=== PATIENT | male | born 1940 | race Caucasian/White ===

== ENCOUNTER 2016-09-13 09:48 | Inpatient (IN) | payer OTHER ==
[~2016-09-13] VITALS: Ht 162.6 cm; Wt 90.7 kg
[2016-09-13 10:38] LABS: BASOPHIL % 0.4 % (0-2); PLATELET COUNT 187 x10^3mcL (130-400); RED CELL DISTRIBUTION WIDTH 13.4 % (11.5-14.5)
[2016-09-13 10:58] LABS: ALBUMIN 3.5 g/dL (3.4-5.0); ALKALINE PHOSPHATASE 117 U/L (46-116); ALT/SGPT 30 U/L (16-63); AST/SGOT 28 U/L (15-37); BILIRUBIN TOTAL 0.36 mg/dL (0.20-1.00); CALCIUM 9.2 mg/dL (8.5-10.1); CARBON DIOXIDE 29.4 mmol/L (21-32); CHLORIDE SERUM 106 mmol/L (98-107); CREATININE SERUM 1.2 mg/dL (0.7-1.3); GLUCOSE SERUM 158 mg/dL (74-106); SODIUM SERUM 139 mmol/L (136-145); TOTAL PROTEIN, SERUM 7.3 g/dL (6.4-8.2)
[2016-09-13 11:02] LABS: POTASSIUM SERUM 5.6 mmol/L (3.5-5.1)
[2016-09-13 11:22] LABS: LIPASE 2754 IU/L (73-393)
[2016-09-13] MEDS ORDERED: LOSARTAN POTASS25 M1 PO (11:59)
[2016-09-13] MEDS ORDERED: GABAPENTIN100 M2 (11:59)
[2016-09-13 13:13] LABS: CHOLESTEROL/HDL RATIO 2.5
[2016-09-13 13:46] VITALS: BP 138/71
[2016-09-13 13:48] LABS: T3 TOTAL 0.94 ng/mL
[2016-09-13 13:49] LABS: FREE T4 0.96 ng/dL (0.76-1.46); T4(THYROXINE) 5.2 ug/dL (4.7-13.3)
[2016-09-13 15:34] LABS: microscopic required? NO
[2016-09-13 15:41] LABS: UA SPECIFIC GRAVITY 1.015 (1.005-1.035); urine erythrocyte NEGATIVE (NEGATIVE)
[2016-09-13 17:10] VITALS: BP 159/82
[2016-09-13 21:12] VITALS: BP 146/72
[2016-09-14] VITALS (8 sets, daily range): BP systolic 119–158; BP diastolic 57–84
[2016-09-14 06:06] LABS: BASOPHIL % 0.2 % (0-2); PLATELET COUNT 139 x10^3mcL (130-400); RED CELL DISTRIBUTION WIDTH 13.2 % (11.5-14.5)
[2016-09-14 06:31] LABS: CALCIUM 7.8 mg/dL (8.5-10.1); CARBON DIOXIDE 25.5 mmol/L (21-32); CHLORIDE SERUM 108 mmol/L (98-107); CREATININE SERUM 1.2 mg/dL (0.7-1.3); GLUCOSE SERUM 112 mg/dL (74-106); LIPASE 477 IU/L (73-393); MAGNESIUM 1.7 mg/dL (1.8-2.4); PHOSPHOROUS 3.7 mg/dL (2.5-4.9); POTASSIUM SERUM 4.5 mmol/L (3.5-5.1); SODIUM SERUM 141 mmol/L (136-145)
[2016-09-15 06:13] VITALS: BP 118/51
[2016-09-15 08:29] LABS: BASOPHIL % 0.4 % (0-2); RED CELL DISTRIBUTION WIDTH 13.4 % (11.5-14.5)
[2016-09-15 08:37] LABS: PLATELET COUNT 110 x10^3mcL (130-400)
[2016-09-15 09:06] LABS: CARBON DIOXIDE 26.8 mmol/L (21-32); CHLORIDE SERUM 104 mmol/L (98-107); GLUCOSE SERUM 182 mg/dL (74-106); POTASSIUM SERUM 4.1 mmol/L (3.5-5.1); SODIUM SERUM 137 mmol/L (136-145)
[2016-09-15 09:07] LABS: CALCIUM 8.5 mg/dL (8.5-10.1); CREATININE SERUM 1.2 mg/dL (0.7-1.3); PHOSPHOROUS 3.6 mg/dL (2.5-4.9)
[2016-09-15 09:08] LABS: MAGNESIUM 1.5 mg/dL (1.8-2.4)
[2016-09-15 09:40] VITALS: BP 133/65
[2016-09-15] MEDS ORDERED: LIPI20 PO (15:31)
[2016-09-15] MEDS ORDERED: PROTONIX20 MG PO (15:32)
[2016-09-15] MEDS ORDERED: ROC1I IM (15:33)
[2016-09-15 15:48] VITALS: BP 133/65
[2016-09-15 17:29] VITALS: BP 156/71
== END 2016-09-15 18:25 | disposition short-term general hospital (02) | DRG 440 ==
LOC: ED 09:48 → DU 11:57 → MU 09-14 18:18
PROVIDERS: Emergency Medicine; Family Medicine; ADMIT Family Medicine
DX: K85.90 Acute pancreatitis without necrosis or infection, unspecified (principal); R73.03 Prediabetes; E87.5 Hyperkalemia; E83.42 Hypomagnesemia; I10 Essential (primary) hypertension; H40.9 Unspecified glaucoma; K57.30 Diverticulosis of large intestine without perforation or abscess without bleeding; E66.9 Obesity, unspecified; Z68.34 Body mass index [BMI] 34.0-34.9, adult; Z71.3 Dietary counseling and surveillance
CPT/HCPCS: 82962; 83880; 84439; 94150; C9113; J0696; J2270; J2405; J3010; J3475; J7030; J7040; Q0092